=== PATIENT | male | born 1960 | race Caucasian/White ===

== ENCOUNTER → 2018-02-26 | Outpatient (CLI) | payer OTHER ==
[~2018-02-26] MED LIST: ALEVE220 MG PO; ASPIRIN325 PO; COLACE100 MG PO; ELIQUIS2.5 MG PO; HYDROCODONE-AP1 EAC6 PO; LISINOPRIL20 MG PO; LUNESTA1 MG PO; METAMUCIL PAC1 UDPKT PO; METAMUCIL1 EAC1 PO; MIRALAX17 GM PO; NEURONTIN 300300 M1 PO; OXYCODONE HCL 55 MG PO; TYLENOL EXTRA500 MG PO
== END ==
LOC: M.LAB 00:52
DX: Z01.812 Encounter for preprocedural laboratory examination (principal)

== ENCOUNTER 2018-03-04 11:01 | Inpatient (IN) | payer OTHER ==
[~2018-03-04] VITALS: Ht 185.4 cm; Wt 127.0 kg
[~2018-03-04 11:01] MED LIST changes: -ALEVE220 MG PO; -ELIQUIS2.5 MG PO; -METAMUCIL1 EAC1 PO; -TYLENOL EXTRA500 MG PO
[2018-03-20] MEDS ORDERED: ALEVE220 MG PO (14:43)
[2018-03-20] MEDS ORDERED: TYLENOL EXTRA500 MG PO (14:44)
[2018-04-04 08:52] LABS: ABSOLUTE BASOPHILS 0.1 thou/uL (0.0-0.2); ABSOLUTE EOSINOPHILS 0.5 thou/uL (0.0-0.7); ABSOLUTE MONOCYTES 0.7 thou/uL (0.0-1.2); ABSOLUTE NEUTROPHILS 5.1 thou/uL (1.6-8.1); BASOPHILS 1.2 %; EOSINOPHILS 5.7 %; HEMATOCRIT 38.8 % (42.0-52.0); HEMOGLOBIN 13.1 gm/dL (14.0-18.0); LYMPHOCYTES 23.9 %; MCH 29.8 pg (26.0-34.0); MCHC 33.7 g/dL (28.0-37.0); MCV 88.4 fL (80.0-100.0); MONOCYTES 8.7 %; MPV 8.7 fl. (7.2-11.1); NUCLEATED RBCS 0 /100WBC; PLATELET COUNT* 229 thou/uL (150-400); POLYS 60.5 %; RBC 4.39 mil/uL (4.50-6.00); RDW-CV 15.2 % (10.5-14.5); WBC 8.5 thou/uL (4.0-11.0)
[2018-04-04 09:06] LABS: APTT 26.1 Seconds (25.0-31.3); PROTIME 9.7 Seconds (9.20-11.50)
[2018-04-04 09:11] LABS: ALBUMIN 3.8 g/dL (3.4-5.0); CALCIUM 8.8 mg/dL (8.5-10.1); CREATININE 1.1 mg/dL (0.6-1.3); POTASSIUM 4.3 mmol/L (3.5-5.1); TOTAL BILIRUBIN 0.9 mg/dL (<0.1-1.0); TOTAL PROTEIN 6.6 g/dL (6.4-8.2)
[2018-04-04 10:16] LABS: ESR (SEDRATE) 8 mm/hr (0-20)
--- NOTE | 2018-04-04 10:25 | EKG ---
[place] [address] ELECTROCARDIOGRAM REPORT Name: HARMEET WARD Room: PRE IN [facility]#: [id number] Admission: Attend Phys: Ezekiel Ocasio Discharge: Date of : 58 Report #: [id number] THIS REPORT FOR: //name// [facility] Test Date: 2018-04-04 Test Time: 08:55:43 Pat Name: HARMEET WARD Department: Room: Gender: M Human Resources Advisor: FIDELIA : 1960 Requested By: Ar Galvan Order Number: [id number] Reading MD: Raymundo Vigil Measurements Intervals [place] Rate: 63 P: 78 UT: 157 QRS: 22 QRSD: 124 T: 33 QT: 417 QTc: 427 Interpretive Statements Sinus rhythm IVCD, consider atypical RBBB Compared to ECG 12/28/2014 10:35:07 Incomplete right bundle-branch block no longer present Electronically Signed On 04-04-2018 10:25:12 CDT by Raymundo Vigil [email or web address] <ELECTRONICALLY SIGNED> By: Raymundo Vigil MD, [facility] 04/04/18 1025 [id number] [id number] Raymundo Vigil MD, FAC /EPI
[2018-04-05 10:13] LABS: GLYCOHEMOGLOBIN (HGB A1C) 5.5 % (4.8-5.6)
[2018-04-15 10:00] VITALS: BP 130/55
[2018-04-15 15:30] VITALS: BP 137/66
--- NOTE | 2018-04-15 17:36 | NUR ---
ASSUMED CARES OF PT AT 1515 FROM PACU. PT IN BED, BED IN LOW LOCKED POSITION, BED ALARM ON. PT A&O X4, HRRR PER AUSCULTATION, VSS ON 4L NC O2 POST SURGERY, NOT WORN AT HOME. LCTAB, LAST BM TODAY. SCATTERED BRUISING, SCARS. RIGHT KNEE MEPILEX DRESSING C/D/I, THIGH HIGH JASON HOSE BILATERALLY, CALF SCD'S BILATERALLY. AFEBRILE, PERRLA, COOPERATIVE, PLEASANT. LEFT FA IV 20 GAUGE PATENT TO FLUIDS/LR 75 ML/HR, PT ORDERS EARLY AMBULATION, UP TO CHAIR, UP WITH ASSIST, WBAT. CONSULTS OT, PT, RT, CM, SURGERY. REGULAR DIET TOLERATED. SPOUSE AT BEDSIDE. HOURLY ROUNDING CONTINUES. WILL CONTINUE TO MONITOR PT STATUS AND PROGRESS.
--- NOTE | 2018-04-15 18:41 | NUR ---
REPORT TO BE GIVEN TO ORGANIZATION DEVELOPMENT CONSULTANT FOR CONTINUED CARES. PT REMAINS STABLE, A&O X4, DENIES NAUSEA. PAIN CONTROLLED. HOURLY ROUNDING COMPLETED THIS SHIFT. PT PROGRESSING TOWARDS GOAL. COOPERATIVE AND FRIENDLY.
[2018-04-15 20:00] VITALS: BP 110/65
[2018-04-15 23:51] VITALS: BP 106/54
[2018-04-16 03:51] VITALS: BP 96/54
[2018-04-16 04:06] LABS: HEMATOCRIT 34.2 % (42.0-52.0); HEMOGLOBIN 11.5 gm/dL (14.0-18.0)
--- NOTE | 2018-04-16 06:45 | NUR ---
PATIENT SLEPT PART OF THE NIGHT. PATIENT TOLERATED PO FLUIDS FOOD WITH NO NAUSEA. IV IS NOW SALINE LOCKED. PATIENT HAS HAD NO COMPLAINTS OF PAIN IN HIS RIGHT KNEE BUT NERVE BLOCK IS STILL WORKING. WILL CONTINUE TO MONITOR.
--- NOTE | 2018-04-16 12:41 | NUR ---
SKILLED OT EVAL AND TREAT DEFERRED TO P.T. FOR GAIT AND MOBILITY TRAINING
[2018-04-16] MEDS ORDERED: OXYCODONE HCL 55 MG PO (14:55)
[2018-04-16] MEDS ORDERED: ELIQUIS2.5 MG PO (14:56)
[2018-04-16 14:59] VITALS: BP 96/54
[2018-04-16] MEDS ORDERED: METAMUCIL1 EAC1 PO (15:14)
--- NOTE | 2018-04-16 16:12 | NUR ---
VISITED WITH PT.AFTER HIS AFTERNOON THERAPY SESSION. King RODRIGUEZFEELS PT.IS DOING WELL ENOUGH TO DISCHARGE HOME. PT.A LITTLE RELUCTANT BUT AGREEABLE TO DISCHARGE. HE SAID HIS WILL BE THERE WITH HIM. SHE WILL BE COMING TO PICK HIM UP SHORTLY. HE IS NORMALLY INDEPENDENT AT HOME. HE HAS A WALKER HE CAN USE. CALLED IN PRESCRIPTION FOR ELIQUIS, WRITTEN,EARLIER TO PT.PHARMACY. COPAY IS $43.00. HE SAID THAT WOULD BE OK. HE WOULD LIKE TO USE [facility] FOR [facility]. [facility] AND FA[facility] HER ORDERS AND H&P AND OP REPORT. TOLD PT.IF HE HAS ANY QUESTIONS AT ALL AT HOME, HE COULD CALL HOME HEALTHDR.'S OFFICE OR NURSES STATION.
--- NOTE | 2018-05-01 15:07 | PATH ---
[address] [address] PATHOLOGY RPT PROCEDURE Name: HARMEET WARD Room: [address] IN M.R.#: [id number] Admission: 04/15/18 Date of : 58 Discharge: 04/16/18 Report #: [id number] Path Case #: [id number] [facility] Accession Number: [id number] . 01 Material submitted: . RIGHT KNEE SYNOVIUM - FS . 01 Clinical history: . Failed right total knee . 02 Diagnosis: Right knee synovium: - Benign synovium and fibrous connective tissues with evidence of prior surgery including foreign body type granulomata in association with pigmented foreign material, with less than 5 neutrophils per high power field on average within soft tissues, BUT with surface fibrinoid bloody material, predominantly on synovium, with 5-10 neutrophils per high power field on average. See comment. [facility]/04/17/2018 . 02 Comment: The solid soft tissues themselves show few neutrophils, averaging less than 5 per high power field, although in many areas, seen predominantly on the synovium, there is fibrinoid bloody material where neutrophils range in number up to 30 per high power field, but averaging 5 to 10 per high power field. . (YANICK:mml; 04/17/18) . 02 Electronically signed: . Rodrigo Gautam MD, Pathologist NPI- [id number] . 01 Gross description: . Received fresh from the operating room accompanied by a label marked "Harmeet Ward., right knee synovium" are two segments of bloody ca to arevalo to pink soft tissues with aggregate greatest dimensions of approximately 8 x [address] Galvan notes this patient has had a prior knee replacement and has developed a fluid collection in association with it and requests intraoperative evaluation for the presence of possible neutrophils also noting that it does not appear infected intraoperatively. Blood is blotted away from the soft tissues and they each have a surface which is smooth and ca-white with underlying hyperemia and several cross sections are taken from both pieces and touch prepped with a automotive leasing sales representative section from each of the two pieces submitted for frozen studies and the remainder of those tissues frozen are submitted in cassette A1. Additional automotive leasing sales representative sections from both segments are submitted in cassettes A2 [place] [address] PATHOLOGY RPT PROCEDURE Name: HARMEET WARD Room: [address] IN [facility].#: [id number] Admission: 04/15/18 Date of : 58 Discharge: 04/16/18 Report #: [id number] Path Case #: [id number] . FROZEN SECTION DIAGNOSIS: Intraoperative consultation (frozen diagnosis with touch prep, right knee synovium): - Benign synovium and fibrous connective tissues with less than 5 neutrophils per high power field on average BUT with surface fibrinoid material (on synovium) with 5 to 10 neutrophils per high power field on average. - The findings are relayed directly to Dr. Ar Galvan in the operating room and a note is entered into the medical record. . (YANICK:[facility] 04/16/2018) . Frozen section performed at [facility] , [address] [place] [address] / . 02 Pathologist provided ICD-10: T84.092A, Z96.651 . 02 CPT . 573288, 880305 Performed at: [address] [facility] [address], [place], [place] [id number] MD Agus Reyes MD Phone: [phone] Performed at: 02 [facility] [place] [address] [address], [place] [id number] MD Rodrigo Gautam MD Phone: [phone]
--- NOTE | 2018-05-07 07:10 | OP ---
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 PROCEDURE: Revision of the right total knee (tibial tray and tibial bearing). SURGEON: Ar Galvan DO. ANESTHESIA: General endotracheal. COMPLICATIONS: None. POULTRY SCIENTIST: Sofia Galvan DO. IMPLANTS: A Biomet fixed cruciate tibial plate, 79 mm right; and a tibial bearing 16 mm. One bag of Palacos bone cement, one bag of Bactisure lavage system, 2 grams of vancomycin powder topical. ANTIBIOTICS PREOP: 2 grams of Ancef IVPB 30 minutes prior to incision. Intraoperative consult with Dr. Gautam, less than 5 PMNs per high-powered field with synovium except for one to two small pockets were slightly greater than 5, most likely indicative of inflammation. ESTIMATED BLOOD LOSS: 100-125 mL. COMPLICATIONS: None. INDICATIONS: The patient is a 58-year-old male who underwent a total knee arthroplasty 18 months to 2 years ago. Subsequently, he had continued pain to the posterolateral corner of his knee. He has had aggressive conservative care with the use of exercise therapy, injections, weight loss, and anti-inflammatories to no avail. He is here today [place] [address] OPERATIVE REPORT Name: HARMEET WARD Room: [address]#: [id number] Admission: 04/15/18 Attend Phys: Ezekiel Ocasio Discharge: 04/16/18 Date of : 58 Report #: [id number] tibial plate, possible total knee revision. Risks and complications were discussed in detail with the patient including but not limited to neurovascular damage, infection, fracture, need for further surgery, continued pain, decreased range of motion, need for further revision surgery and/or even amputation above knee, deep vein thrombosis, pulmonary emboli, myocardial infarction, rhabdomyolysis, even . All questions were answered. A signed informed consent has been attached to the chart and his knee was marked preoperatively for timeout technique. SURGICAL PROCEDURE: The patient was taken to the operating suite and placed on the operating table in supine position. Following general endotracheal anesthetic, the right knee was designated as the appropriate surgical site after timeout technique and an incision was made along the previous incision through skin and subcutaneous tissue down to the extensor mechanism. A median parapatellar incision was then performed. The knee was placed through range of motion while directly watching the implants. It is extremely stable in all planes. There was no laxity in extension to varus valgus testing, there was no laxity at 20 degrees. The patella tracks anatomically throughout the entire arc of motion. There is a negative [place], negative drawer's test at 90 degrees, there was a negative pivot shift test noted. The patient has his patella scarred in. He has a great deal of scar tissue throughout the entire knee itself, mostly on the lateral side. It takes quite a little bit of time to simply break down the scar tissue and debride the synovium. The synovial tissue was abundant and in order to make certain or at best in order to help determine if any infection was present, a synovial tissue and cultures were sent to pathology. The cultures were for aerobic, anaerobic, acid fast, fungal and Gram stain. The tissue samples went to Dr. Gautam who evaluated them under high power field and found less than 5 in most areas with a couple of pockets equal to or greater than 5 PMNs per high-powered field. Certainly, this raised our awareness due to the possibility of a very small area of pockets of infection; however, he already has a total knee in place; therefore to just simply do a washout would be a waste of his time in and of our efforts. Therefore, we continued with the debridement of the entire knee. There was a great deal of soft tissue impingement laterally along the posterolateral corner. This was cleaned as much as possible. The knee was checked once again with direct visualization of the implants and I could not find any type of malalignment or malfunctioning of the implants. I feel it must be more of a process of the retained anterior cruciate ligament, posterior cruciate ligament, scar tissue and posterolateral corner impingement. The anterior cruciate ligament and posterior cruciate ligament were resected. The small island of bone in the intercondylar notch was resected with the use of an osteotome. The locking bar was removed and the polyethylene liners were removed. With the use of a flexible osteotome, the proximal tibial plate was resected and removed with leaving as much bone remaining as possible. Once this implant was removed, copious irrigation was carried out throughout the incision. The external tibial guide was aligned in all planes, pinned into place and a freshened up cut was [place] [address] [address] OPERATIVE REPORT Name: SYLVIAHARMEET G Room: [address] M.R.#: [id number] Admission: 04/15/18 Attend Phys: Ezekiel Ocasio Discharge: 04/16/18 Date of : 58 Report #: [id number] made approximately 1 mm below the lowest point on the tibial rim of cortical bone. After that, copious irrigation carried out. Once again, all cement mantle remaining was removed with a rongeur. A trial tibial tray was inserted. A tibial spacer was inserted and the knee was placed through range of motion. Excellent range of motion was possible with this implant configuration. Good stability was noted throughout. The tibial tray was then aligned in all planes, pinned into place. It was prepared for the final finned tibial tray with the reamer and the cruciform punch. Once we received the pathology report and all implants were in, Bactisure was utilized to thoroughly cleanse every part of the knee, then was thoroughly irrigated thereafter. The patient had a Betadine soak for 3 minutes with roughly 33% Betadine solution and saline solution. Then, this was thoroughly cleansed as well. Vancomycin topical powder was then sprinkled throughout the incision once all implants were in and good stability was achieved and prior to closure. The final spacer was placed, locked in place with locking bar. Range of motion was easily 0-135 degrees. The knee was stable throughout the entire arc of motion. It was very stable to anterior drawer testing at 90 degrees as well. The knee was then closed with #1 Vicryl in [id number] fashion to the extensor mechanism and the parapatellar incision. This was then also reinforced with a #1 Quill running suture. The skin was reapproximated with 2-0 Monocryl subcutaneous sutures followed by running 3-0 Stratafix subcuticular suture reinforced with Dermabond glue. A Mepilex dressing followed by a thigh-high JASON hose was applied. The patient tolerated the procedure well and was taken to recovery room in stable condition. No complications were encountered. <ELECTRONICALLY SIGNED> By: Gustavo Lowe DO 05/07/18 0710 1812 1857Ar Galvan DO /wendy
== END 2018-04-16 17:04 | disposition home health service (06) | DRG 467 ==
LOC: M.PRE → M.ORTHSURG 04-15 08:00 → M.TBA 04-15 08:00 → M.PRE 04-15 08:03 → M.ORTHSURG 04-15 15:17
PROVIDERS: Orthopaedic Surgery; ADMIT Internal Medicine
PROC: 0SRC0J9 Replacement of Right Knee Joint with Synthetic Substitute, Cemented, Open Approach (ICD-10-PCS; principal; 2018-04-15)
PROC: 0SPC0JZ Removal of Synthetic Substitute from Right Knee Joint, Open Approach (ICD-10-PCS; principal; 2018-04-15)
DX: T84.092A Other mechanical complication of internal right knee prosthesis, initial encounter (principal); R71.0 Precipitous drop in hematocrit; M17.11 Unilateral primary osteoarthritis, right knee; I10 Essential (primary) hypertension; N40.0 Benign prostatic hyperplasia without lower urinary tract symptoms; E66.9 Obesity, unspecified; Y83.8 Other surgical procedures as the cause of abnormal reaction of the patient, or of later complication, without mention of misadventure at the time of the procedure; Z96.653 Presence of artificial knee joint, bilateral; Y92.89 Other specified places as the place of occurrence of the external cause; Z68.36 Body mass index [BMI] 36.0-36.9, adult; Z82.49 Family history of ischemic heart disease and other diseases of the circulatory system; Z80.8 Family history of malignant neoplasm of other organs or systems

== ENCOUNTER 2019-08-28 22:49 | Emergency (ER) | payer OTHER ==
[~2019-08-28] VITALS: Ht 185.4 cm; Wt 136.1 kg
[~2019-08-28 22:49] MED LIST changes: +ALEVE220 MG PO; +ELIQUIS2.5 MG PO; +METAMUCIL1 EAC1 PO; +TYLENOL EXTRA500 MG PO
[2019-08-28] MEDS ORDERED: MELOXICAM15 MG PO (23:00)
[2019-08-28 23:20] LABS: ABSOLUTE BASOPHILS 0.1 thou/uL (0.0-0.2); ABSOLUTE EOSINOPHILS 0.3 thou/uL (0.0-0.7); ABSOLUTE LYMPHOCYTES 2.8 thou/uL (0.8-5.3); ABSOLUTE MONOCYTES 1.1 thou/uL (0.0-1.2); ABSOLUTE NEUTROPHILS 5.5 thou/uL (1.6-8.1); BASOPHILS 0.8 %; HEMATOCRIT 39.6 % (42.0-52.0); HEMOGLOBIN 13.6 gm/dL (14.0-18.0); LYMPHOCYTES 28.6 %; MCH 29.7 pg (26.0-34.0); MCHC 34.4 g/dL (28.0-37.0); MCV 86.3 fL (80.0-100.0); MONOCYTES 10.9 %; MPV 8.6 fl. (7.2-11.1); NUCLEATED RBCS 0 /100WBC; PLATELET COUNT* 284 thou/uL (150-400); POLYS 56.7 %; RBC 4.59 mil/uL (4.50-6.00); RDW-CV 14.5 % (10.5-14.5); WBC 9.7 thou/uL (4.0-11.0)
[2019-08-28 23:27] LABS: CALCIUM 8.5 mg/dL (8.5-10.1); CREATININE 1.2 mg/dL (0.6-1.3); POTASSIUM 3.9 mmol/L (3.5-5.1)
[2019-08-28 23:30] LABS: PROTIME 10.1 Seconds (9.20-11.50)
[2019-08-28 23:52] LABS: ALBUMIN 3.6 g/dL (3.4-5.0); TOTAL BILIRUBIN 0.4 mg/dL (<0.1-1.0)
[2019-08-29 02:37] VITALS: BP 115/58
--- NOTE | 2019-08-29 10:17 | EKG ---
[place] [address] ELECTROCARDIOGRAM REPORT Name: HARMEET WARD [id number] Admission: 08/28/19 Attend Phys: Discharge: 08/29/19 Date of : 58 Report #: [id number] THIS REPORT FOR: //name// [facility] ED Test Date: 2019-08-28 Test Time: 22:51:45 Pat Name: HARMEET WARD Department: Room: Gender: M Community Education Specialist: : 1960 Requested By: Christa Francis Order Number: [id number] MD: Finn Steward Measurements Intervals [place] Rate: 73 P: 72 [place]: 160 QRS: 38 QRSD: 115 T: 49 QT: 390 QTc: 430 Interpretive Statements Sinus rhythm Probable left atrial enlargement Incomplete right bundle branch block Baseline wander in lead(s) V2 Compared to ECG 04/04/2018 08:55:43 no change Electronically Signed On 08-29-2019 10:17:16 [facility] [employer] by Finn Steward [email or web address] <ELECTRONICALLY SIGNED> By: Finn Steward MD, [facility] 08/29/19 1017 50 50 Finn Steward MD, FAC /EPI
== END 2019-08-29 02:37 | disposition home or self-care (01) ==
LOC: M.ERS 22:49
PROVIDERS: Emergency Medicine
DX: R07.89 Other chest pain (principal); M25.512 Pain in left shoulder; M54.9 Dorsalgia, unspecified; I10 Essential (primary) hypertension; N40.0 Benign prostatic hyperplasia without lower urinary tract symptoms; Z90.89 Acquired absence of other organs